=== PATIENT | female | born 1990 | race Two or more races ===

== ENCOUNTER 2025-01-09 10:58 | Emergency (ER) | payer MEDICAID, SELFPAY ==
[2025-01-09 10:59] VITALS: BMI 35.9
[2025-01-09 11:23] VITALS: BP 143/94; PULSE 78; RESP 16; TEMP 36.9; O2SAT 97
--- NOTE | 2025-01-09 11:32 | PD.EDEYE ---
ED Eye Problem RME/HPI General Chief complaint: Eye Problems Stated complaint: RIGHT EYE RED x 5 DAYS Time Seen by Provider: 01/09/25 11:20 Arrival date/time: 01/09/25 10:58 34-year-old female with medical history significant for diabetes presents the emergency department today with complaints of right eye discharge for right eye pain and right eye lid swelling patient reports that she saw automotive general manager and they put her on erythromycin 3 days ago but has not helped Limitations: no limitations Related Data Previous Rx's ?Medication ?Instructions ?Recorded albuterol sulfate 90 mcg/actuation 2 puff inhalation Q6H PRN 09/23/23 aerosol inhaler (Ventolin HFA) shortness of breath or wheezing #8.5 grams benzonatate 100 mg capsule 100 mg PO TID #14 caps 09/23/23 cephalexin 500 mg capsule 500 mg PO BID 7 days #14 caps 01/09/25 diphenhydramine HCl 25 mg capsule 25 mg PO Q8H PRN allergic symptoms 01/09/25 (Benadryl) #30 caps tobramycin 0.3 % eye drops 2 drp ophthalmic (eye) Q4H 5 days 01/09/25 #5 mL Allergies Allergy/AdvReac Type Severity Reaction Status Date / Time No Known Allergies Allergy Verified 01/09/25 10:58 Review of Systems Review of Systems Systems Reviewed: All systems reviewed, normal except as documented Constitutional Constitutional: Reports system reviewed and no additional complaints, except as documented, Denies fever(s) and Denies headache(s) Eyes Eyes: Reports system reviewed and no additional complaints, except as documented, Denies blurry vision, Reports irritation, Reports itchy eyes and Reports eye pain ENT Ears, Nose, Mouth, and Throat: Reports system reviewed and no additional complaints, except as documented, Denies headache(s), Denies nasal congestion and Denies nasal discharge Cardiovascular Cardiovascular: Reports system reviewed and no additional complaints, except as documented, Denies chest pain and Denies dyspnea Respiratory Respiratory: Reports system reviewed and no additional complaints, except as documented, Denies chest congestion, Denies cough and Denies dyspnea Gastrointestinal Gastrointestinal: Reports system reviewed and no additional complaints, except as documented and Denies abdominal pain Musculoskeletal Musculoskeletal: Reports system reviewed and no additional complaints, except as documented Integumentary/Breasts Skin/Breast: Reports system reviewed and no additional complaints, except as documented and Denies rash Neurologic Neurologic: Reports system reviewed and no additional complaints, except as documented, Reports as per HPI and Denies headache(s) Allergic/Immunologic Allergic/Immunologic: Reports itchy eyes Past Medical History Social History SMOKING STATUS: Never smoker ED Exam General Limitations: Present no limitations General appearance: Present alert and in no apparent distress Head Head exam: Present atraumatic, normocephalic and normal inspection Eye Eye exam: Present PERRL, EOMI and conjunctival injection (Right eye discharge); Absent periorbital swelling or periorbital tenderness ENT ENT exam: Present normal exam, normal oropharynx and mucous membranes moist Neck Neck exam: Present normal inspection, full ROM and trachea midline Chest Chest inspection: Present normal inspection and symmetric chest wall rise Respiratory Respiratory exam: Present normal lung sounds bilaterally; Absent respiratory distress, wheezes or stridor Cardiovascular Cardiovascular exam: Present regular rate, normal rhythm and normal heart sounds Abdominal Exam Abdominal exam: Present soft and normal bowel sounds Extremities Exam Extremities exam: Present normal inspection and full ROM Back Exam Back exam: Present normal inspection and full ROM Neurological Exam Neurological exam: Present alert, oriented X3 and CN II-XII intact Psychiatric Psychiatric exam: Present normal affect and normal mood Skin Skin exam: Present warm, dry, intact and normal color Course Quality Measures none Vital Signs Vital signs: Vital Signs Temperature 98.4 F 01/09/25 11:23 Pulse Rate 78 01/09/25 11:23 Respiratory Rate 16 01/09/25 11:23 Blood Pressure 143/94 H 01/09/25 11:23 Pulse Oximetry (%) 97 01/09/25 11:23 Oxygen Delivery Method Room Air 01/09/25 11:23 O2 saturation 97% room air within normal limits Eye MDM Narrative MDM Narrative:: 34-year-old female with medical history significant for diabetes presents the emergency department today with complaints of right eye discharge for right eye pain and right eye lid swelling patient reports that she saw automotive general manager and they put her on erythromycin 3 days ago but has not helped On exam patient well-appearing patient does not appear ill or toxic in no acute distress on exam patient does have right eye discharge mild conjunctival injection and right upper eyelid swelling On exam patient has no hyphema pupils are normal pupils are reactive equal in size Patient reports no headache dizziness weakness Patient reassured with course of antibiotics Explained to the patient she should follow-up with eye doctor soon as possible and if she develops any disturbances in vision to return immediately for further evaluation Patient data External records reviewed:: [facility] previous records Clinical information provided by:: patient Social determinants that could affect healthcare access:: none Patient has the following chronic illnesses:: See history How is presenting disease/condition affected by chronic disease/condition?: uneffected by Evaluation data The following diagnostics were reviewed and interpreted by me:: other (specify) Lab and/or radiology exams considered but not ordered:: Considered not ordered Interpretation Summary: N/A Medications / Prescriptions Medications or Prescriptions considered but not ordered:: Given Medication administrations:: Given Consultations Consultation(s) initiated? (list below): No Diagnosis Eye Problem Differential Diagnosis: corneal abrasion, conjunctivitis, corneal ulcer and ruptured globe Most likely diagnosis given after review of the tests above:: Conjunctivitis Admission Indicated Admission indicated?: not indicated Admission Request Was there a request for admission?: No Disposition Plan Disposition Plan: Discharge Discharge Attestation Discharge Attestation: The patient and all family members were given an opportunity to ask questions and understood the discharge instructions. Discharge instructions specifically effects, indications for sooner follow up or return to the emergency department, and the expected course of current diagnosis. Patient condition: Stable Discharge Plan Plan Patient Disposition: HOME (Self Care) Disposition Comment: Stable Prescriptions/Referrals Prescriptions/Med Rec: New cephalexin 500 mg capsule 500 mg PO BID 7 Days Qty: 14 0RF diphenhydramine HCl [Benadryl] 25 mg capsule 25 mg PO Q8H PRN (Reason: allergic symptoms) Qty: 30 0RF tobramycin 0.3 % drops 2 drp ophthalmic (eye) Q4H 5 Days Qty: 5 0RF No Action benzonatate 100 mg capsule 100 mg PO TID Qty: 14 0RF albuterol sulfate [Ventolin HFA] 90 mcg/actuation HFA aerosol inhaler 2 puff inhalation Q6H PRN (Reason: shortness of breath or wheezing) Qty: 8.5 0RF Problem List Clinical Impression: Conjunctivitis Patient/Caregiver Discharge Instructions Education Materials: What Is Conjunctivitis? Additional Instructions: Please follow up with your primary care doctor in the next 24-48hrs for any worsening symptoms return here immediately Print Language: Divehi Stand Alone Forms: [employer]anne Award Info., Work/School Release, Patient Portal Info Letter PA/DRIVING TEACHER Supervising Physician PA/DRIVING TEACHER Supervising Physician: Dr Renee
== END 2025-01-09 11:52 | disposition home or self-care (01) ==
PROVIDERS: Emergency Provider Emergency Medicine; PCP Family Medicine
DX: H10.9 Unspecified conjunctivitis (principal)
CPT/HCPCS: 99281

== ENCOUNTER 2025-01-11 17:49 | Emergency (ER) | payer MEDICAID, SELFPAY ==
[2025-01-11 18:54] VITALS: BP 116/81; PULSE 100; RESP 18; TEMP 37.6; O2SAT 96
--- NOTE | 2025-01-11 19:11 | EDNOTE_ITS ---
ED General RME/HPI General Chief complaint: Fever Stated complaint: FEVER, SORE THROAT, CONGESTION, NAUSEA SINCE SAT. Time Seen by Provider: 01/11/25 18:11 Arrival date/time: 01/11/25 17:49 34-year-old female presents with a 3-day history of cough, sore throat, runny nose and nasal congestion and mild ear pain. She has had a fever of 103 degrees she has been taking Tylenol for her fever. Positive ill contacts at home with similar symptoms. Related Data Previous Rx's ?Medication ?Instructions ?Recorded albuterol sulfate 90 mcg/actuation 2 puff inhalation Q 6H PRN 09/23/23 aerosol inhaler (Ventolin HFA) shortness of breath or wheezing #8.5 grams benzonatate 100 mg capsule 100 mg PO TID #14 caps 10/16 diphenhydramine HCl 25 mg capsule 25 mg PO Q8H PRN all ergic symptoms 01/09/25 (Benadryl) #30 caps albuterol sulfate 90 mcg/actuation 2 inh inhalation Q4 H PRN shortness 01/11/25 aerosol inhaler of breath or wheezing #8.5 g anni amoxicillin 875 mg-potassium 1 tab PO BID #20 tabs clavulanate 125 mg tablet benzonatate 100 mg capsule 100 mg PO Q4H PRN cough #20 caps 01/11/25 Allergies Allergy/AdvReac Type Severity Reaction Status Date / Time No Known Allergies Allergy Verified 01/11/25 17:54 Review of Systems Review of Systems Systems Reviewed: All systems reviewed, normal except as documented Past Medical History Social History SMOKING STATUS: Never smoker ED Exam Narrative Physical exam: Alert and oriented 34-year-old female, no acute distress. Temperature 99.6, BP 116/81, pulse 100, respirations 18 and nonlabore, O2 sat 96% on room air. Cardiovascular regular rate and rhythm, respiratory scattered wheezing noted with occasional crackles. TMs are without erythema, nares are pale and boggy, pharynx is with erythema and no exudate. Tender anterior cervical chain adenopathy. Course Course Course Narrative: 34-year-old female presents with a 3-day history of cough, sore throat, runny nose and nasal congestion and mild ear pain. She has had a fever of 103 degrees she has been taking Tylenol for her fever. Positive ill contacts at home with similar symptoms. Alert and oriented 34-year-old female, no acute distress. Temperature 99.6, BP 116/81, pulse 100, respirations 18 and nonlabore, O2 sat 96% on room air. Cardiovascular regular rate and rhythm, respiratory scattered wheezing noted with occasional crackles. TMs are without erythema, nares are pale and boggy, pharynx is with erythema and no exudate. Tender anterior cervical chain adenopathy. Quality Measures none Vital Signs Vital signs: Vital Signs Temperature 99.6 F 01/11/25 18:54 Pulse Rate 100 01/11/25 18:54 Respiratory Rate 18 01/11/25 18:54 Blood Pressure 116/81 01/11/25 18:54 Pulse Oximetry (%) 96 01/11/25 18:54 Oxygen Delivery Method Room Air 01/11/25 18:54 Discharge Plan Plan Patient Disposition: HOME (Self Care) Discharge Disposition comment: Stable Prescriptions/Referrals Prescriptions/Med Rec: New albuterol sulfate 90 mcg/actuation HFA aerosol inhaler 2 inh inhalation Q4H PRN (Reason: shortness of breath or wheezing) Qty: 8.5 0RF benzonatate 100 mg capsule 100 mg PO Q4H PRN (Reason: cough) Qty: 20 0RF amoxicillin-pot clavulanate 875-125 mg tablet 1 tab PO BID Qty: 20 0RF Continued benzonatate 100 mg capsule 100 mg PO TID Qty: 14 0RF albuterol sulfate [Ventolin HFA] 90 mcg/actuation HFA aerosol inhaler 2 puff inhalation Q6H PRN (Reason: shortness of breath or wheezing) Qty: 8.5 0RF No Action diphenhydramine HCl [Benadryl] 25 mg capsule 25 mg PO Q8H PRN (Reason: allergic symptoms) Qty: 30 0RF Problem List Clinical Impression: Acute tonsillitis, unspecified, Bronchitis Patient/Caregiver Discharge Instructions Other Activity Instructions:: Take the antibiotics as prescribed and complete the course even though you may be feeling better. Education Materials: Tonsillitis in Adults, ED Bronchitis with Wheezing (Adult) Additional Instructions: Stop taking the previously prescribed Keflex. The new antibiotic given is much stronger and will cover the treatment for your eye. Follow-up with your primary care physician in 24 to 48 hours. Return to the ED for any new or worsening symptoms. Print Language: Greek Stand Alone Forms: [employer] Award Info., Work/School Release, Patient Portal Info Letter EDVIN/CABRERA Supervising Physician EDVIN/CABRERA Supervising Physician: Dr. Sheldon RIZO Patient Acuity Low Acuity (complete MDM as needed) Narrative: 34-year-old female presents with a 3-day history of cough, sore throat, runny nose and nasal congestion and mild ear pain. She has had a fever of 103 degrees she has been taking Tylenol for her fever. Positive ill contacts at home with similar symptoms. Alert and oriented 34-year-old female, no acute distress. Temperature 99.6, BP 116/81, pulse 100, respirations 18 and nonlabore, O2 sat 96% on room air. Cardiovascular regular rate and rhythm, respiratory scattered wheezing noted with occasional crackles. TMs are without erythema, nares are pale and boggy, pharynx is with erythema and no exudate. Tender anterior cervical chain adenopathy. Clinical Information Provided by: patient Medical Records reviewed None Meds/Rx considered, not ordered None Labs/Rad/Tests considered, not ordered None Chronic Illness/Social Conditions which may negatively complicate care or outcome(s)-explain: None or not applicable EKG EKG not done Labs Labs: none Imaging Imaging interpretation: none or see narrative above Medication Administration(s) none Diagnosis Differential Diagnosis ED Complaint MDM: Bronchitis, pneumonia, COVID, influenza, strep pharyngitis
== END 2025-01-11 22:46 | disposition home or self-care (01) ==
LOC: SERX 19:55
PROVIDERS: Emergency Provider Family Medicine
DX: J40 Bronchitis, not specified as acute or chronic (principal); J03.90 Acute tonsillitis, unspecified
CPT/HCPCS: 99281

== ENCOUNTER 2025-05-11 20:15 | Emergency (ER) | payer SELFPAY ==
[2025-05-11 20:16] VITALS: BMI 31.1
[2025-05-11 21:05] VITALS: BP 136/88; PULSE 65; RESP 18; TEMP 37.1; O2SAT 99
--- NOTE | 2025-05-11 21:16 | PD.EDURI ---
Upper Respiratory Inf. RME/HPI General Chief Complaint: Flu Like Symptoms Stated Complaint: COVID POS, FEVER/BODYACHES Time Seen by Provider: 05/11/25 21:13 Arrival date/time: 05/11/25 20:15 34F with history of DM presents to ED with 2 days of cough, sore throat, body aches and fevers/chills. Patient tested positive for COVID at home. Limitations: no limitations Related Data Previous Rx's ?Medication ?Instructions ?Recorded albuterol sulfate 90 mcg/actuation 2 puff inhalation Q6H PRN 09/23/23 aerosol inhaler (Ventolin HFA) shortness of breath or wheezing #8.5 grams benzonatate 100 mg capsule 100 mg PO TID #14 caps 09/23/23 diphenhydramine HCl 25 mg capsule 25 mg PO Q8H PRN allergic symptoms 01/09/25 (Benadryl) #30 caps albuterol sulfate 90 mcg/actuation 2 inh inhalation Q4H PRN shortness 01/11/25 aerosol inhaler of breath or wheezing #8.5 grams amoxicillin 875 mg-potassium 1 tab PO BID #20 tabs 01/11/25 clavulanate 125 mg tablet benzonatate 100 mg capsule 100 mg PO Q4H PRN cough #20 caps 01/11/25 nirmatrelvir 300 mg (150 mg See Rx Instructions PO .COMPLEX 05/11/25 x2)-ritonavir 100 mg tablet,dose #30 tabs pack (Paxlovid) Allergies Allergy/AdvReac Type Severity Reaction Status Date / Time No Known Allergies Allergy Verified 05/11/25 20:18 Review of Systems Review of Systems Systems Reviewed: All systems reviewed, normal except as documented Constitutional Constitutional: Reports system reviewed and no additional complaints, except as documented, Reports as per HPI, Reports body ache(s), Reports chills, Reports fever(s) and Denies headache(s) ENT Ears, Nose, Mouth, and Throat: Reports as per HPI, Denies disequilibrium, Denies headache(s) and Reports sore throat Cardiovascular Cardiovascular: Reports system reviewed and no additional complaints, except as documented, Denies chest pain and Denies dyspnea Respiratory Respiratory: Reports system reviewed and no additional complaints, except as documented, Reports as per HPI, Reports cough and Denies dyspnea Gastrointestinal Gastrointestinal: Reports system reviewed and no additional complaints, except as documented, Denies abdominal pain, Denies nausea and Denies vomiting Neurologic Neurologic: Reports system reviewed and no additional complaints, except as documented, Denies confusion, Denies disequilibrium and Denies headache(s) Psychiatric Psychiatric: Denies confusion Past Medical History Social History SMOKING STATUS: Never smoker ED Exam General Limitations: Present no limitations General appearance: Present alert and in no apparent distress Head Head exam: Present atraumatic Eye Eye exam: Present normal appearance, PERRL and EOMI ENT ENT exam: Present normal exam, normal oropharynx and mucous membranes moist Neck Neck exam: Present normal inspection, full ROM and trachea midline Chest Chest inspection: Present normal inspection and symmetric chest wall rise Respiratory Respiratory exam: Present normal lung sounds bilaterally Cardiovascular Cardiovascular exam: Present regular rate, normal rhythm and normal heart sounds Abdominal Exam Abdominal exam: Present soft and normal bowel sounds Extremities Exam Extremities exam: Present normal inspection and full ROM Back Exam Back exam: Present normal inspection and full ROM Neurological Exam Neurological exam: Present alert, oriented X3 and CN II-XII intact Psychiatric Psychiatric exam: Present normal affect and normal mood Skin Skin exam: Present warm, dry, intact and normal color Course Quality Measures none Vital Signs Vital signs: Vital Signs Temperature 98.8 F 05/11/25 21:05 Pulse Rate 65 05/11/25 21:05 Respiratory Rate 18 05/11/25 21:05 Blood Pressure 136/88 H 05/11/25 21:05 Pulse Oximetry (%) 99 05/11/25 21:05 Oxygen Delivery Method Room Air 05/11/25 21:05 O2 at 99% on RA and WNLs Upper Respiratory Infection MDM Narrative MDM Narrative:: 34F with history of DM presents to ED with 2 days of cough, sore throat, body aches and fevers/chills. Patient tested positive for COVID at home. Physical exam reveals clear oropharynx and lungs. Normal WOB. Patient is afebrile, calm, and alert. Will give Paxlovid given DM. Patient data External records reviewed:: [facility] previous records Clinical information provided by:: patient Social determinants that could affect healthcare access:: none Patient has the following chronic illnesses:: DM How is presenting disease/condition affected by chronic disease/condition?: exacerbated by Evaluation data The following diagnostics were reviewed and interpreted by me:: other (specify) (none) Lab and/or radiology exams considered but not ordered:: not ordered Interpretation Summary: n/a Medications / Prescriptions Medications or Prescriptions considered but not ordered:: not ordered Medication administrations:: n/a Consultations Consultation(s) initiated? (list below): No Diagnosis Upper Respiratory Differential Diagnosis: upper respiratory infection, croup, otitis media, sinusitis, viral infection, bronchitis, influenza, pharyngitis and other (COVID) Most likely diagnosis given after review of the tests above:: COVID Admission Indicated Admission indicated?: not indicated Admission Request Was there a request for admission?: No Disposition Plan Disposition Plan: Discharge Discharge Attestation Discharge Attestation: The patient and all family members were given an opportunity to ask questions and understood the discharge instructions. Discharge instructions specifically effects, indications for sooner follow up or return to the emergency department, and the expected course of current diagnosis. Patient condition: Stable Discharge Plan Plan Patient Disposition: HOME (Self Care) Discharge Disposition comment: Stable Prescriptions/Referrals Prescriptions/Med Rec: New Paxlovid 300 mg (150 mg x 2)-100 mg tablets,dose pack See Rx Instructions .ROUTE .COMPLEX Qty: 30 0RF Rx Instructions: take TWO 150 mg tablets of nirmatrelvir with ONE 100 mg tablet of ritonavir twice daily for 5 days No Action diphenhydramine HCl [Benadryl] 25 mg capsule 25 mg PO Q8H PRN (Reason: allergic symptoms) Qty: 30 0RF benzonatate 100 mg capsule 100 mg PO TID Qty: 14 0RF albuterol sulfate [Ventolin HFA] 90 mcg/actuation HFA aerosol inhaler 2 puff inhalation Q6H PRN (Reason: shortness of breath or wheezing) Qty: 8.5 0RF albuterol sulfate 90 mcg/actuation HFA aerosol inhaler 2 inh inhalation Q4H PRN (Reason: shortness of breath or wheezing) Qty: 8.5 0RF benzonatate 100 mg capsule 100 mg PO Q4H PRN (Reason: cough) Qty: 20 0RF amoxicillin-pot clavulanate 875-125 mg tablet 1 tab PO BID Qty: 20 0RF Problem List Clinical Impression: COVID-19 Patient/Caregiver Discharge Instructions Education Materials: COVID-19 Home Care Additional Instructions: Please follow-up with PCP within 24-48 hours and return immediately if symptoms worsen. Ibuprofen/Tylenol can be used simultaneously for greater fever/pain control. Benadryl is good for cough, congestion, and sleep. Print Language: Zambian Stand Alone Forms: Work/School Release, Patient Portal Info Letter PA/SANDWICH MACHINE OPERATOR Supervising Physician PA/SANDWICH MACHINE OPERATOR Supervising Physician: Dr. Cannon
== END 2025-05-11 21:26 | disposition home or self-care (01) ==
LOC: SERX 21:20
PROVIDERS: Emergency Provider Emergency Medicine; PCP Family Medicine
DX: U07.1 COVID-19 (principal); E11.9 Type 2 diabetes mellitus without complications
CPT/HCPCS: 99282

== ENCOUNTER 2025-07-09 18:04 | Emergency (ER) | payer BC, SELFPAY ==
[2025-07-09 18:56] VITALS: BP 130/89; PULSE 71; RESP 18; TEMP 36.9; O2SAT 98; BMI 31.7
--- NOTE | 2025-07-09 19:07 | XR_ITS ---
Examination: Abdomen sonogram, Limited Date and time of exam: July 09, 2025, 2021 hours INDICATIONS: Epigastric pain and vomiting beginning 2 days ago Technique: Real-time paul scale transabdominal sonographic images of the upper abdomen obtained. Findings: Cholelithiasis, normal gallbladder wall Normal common bile duct 0.2 cm Pancreas obscured by bowel gas Liver 13.7 cm fatty infiltration no focal liver lesions Normal hepatopetal portal venous 7 Patent IVC IMPRESSION: Cholelithiasis, negative for cholecystitis
--- NOTE | 2025-07-09 19:09 | PD.EDABDPN ---
ED Abdominal Pain RME/HPI General Chief Complaint: Nausea/Vomiting/Diarrhea Stated complaint: Vomiting, abd. pain X 2 days Time seen by provider: 07/09/25 18:25 Arrival date/time: 07/09/25 18:04 35F with history of DM (on Mounjaro; dose change about 1 month ago) presents to ED with 2 days of epigastric pain and N/V. Limitations: no limitations Related Data Previous Rx's ?Medication ?Instructions ?Recorded albuterol sulfate 90 mcg/actuation 2 puff inhalation Q6H PRN 09/23/23 aerosol inhaler (Ventolin HFA) shortness of breath or wheezing #8.5 grams benzonatate 100 mg capsule 100 mg PO TID #14 caps 09/23/23 diphenhydramine HCl 25 mg capsule 25 mg PO Q8H PRN allergic symptoms 01/09/25 (Benadryl) #30 caps albuterol sulfate 90 mcg/actuation 2 inh inhalation Q4H PRN shortness 01/11/25 aerosol inhaler of breath or wheezing #8.5 grams amoxicillin 875 mg-potassium 1 tab PO BID #20 tabs 01/11/25 clavulanate 125 mg tablet benzonatate 100 mg capsule 100 mg PO Q4H PRN cough #20 caps 01/11/25 nirmatrelvir 300 mg (150 mg See Rx Instructions PO .COMPLEX 05/11/25 x2)-ritonavir 100 mg tablet,dose #30 tabs pack (Paxlovid) Allergies Allergy/AdvReac Type Severity Reaction Status Date / Time No Known Allergies Allergy Verified 07/09/25 18:09 Review of Systems Review of Systems Systems Reviewed: All systems reviewed, normal except as documented Gastrointestinal Gastrointestinal: Reports as per HPI, Reports abdominal pain, Reports nausea and Reports vomiting Past Medical History Social History SMOKING STATUS: Never smoker ED Exam General Limitations: Present no limitations General appearance: Present alert and in no apparent distress Head Head exam: Present atraumatic Neck Neck exam: Present normal inspection, full ROM and trachea midline Chest Chest inspection: Present normal inspection and symmetric chest wall rise Abdominal Exam Abdominal exam: Present soft Abdominal tenderness: Present RUQ, epigastrium and mild Neurological Exam Neurological exam: Present alert and oriented X3 Psychiatric Psychiatric exam: Present normal affect and normal mood Skin Skin exam: Present warm, dry, intact and normal color Course Quality Measures none Orders Category Date Time Status US gall bladder Stat Exams 07/09/25 19:07 Completed CBC Stat Lab 07/09/25 19:11 Completed CMP [Comprehensive Metabolic Panel] Stat Lab 07/09/25 19:11 Completed Drug Screen,Urine Stat Lab 07/09/25 19:40 Completed HCG Qualitative,Urine Stat Lab 07/09/25 19:40 Completed Lipase Stat Lab 07/09/25 19:11 Completed Famotidine [Pepcid] Med 07/09/25 19:07 Discontinued 40 mg PO X1 ONE Metoclopramide [Reglan] Med 07/09/25 19:07 Discontinued 10 mg PO X1 ONE Vital Signs Vital signs: Vital Signs Temperature 98.4 F 07/09/25 18:56 Pulse Rate 71 07/09/25 18:56 Respiratory Rate 18 07/09/25 18:56 Blood Pressure 130/89 H 07/09/25 18:56 Pulse Oximetry (%) 98 07/09/25 18:56 Oxygen Delivery Method Room Air 07/09/25 18:56 O2 at 98% on RA and WNLs Abdominal Pain MDM MDM Narrative MDM Narrative:: 35F with history of DM (on Mounjaro; dose change about 1 month ago) presents to ED with 2 days of epigastric pain and N/V. Physical exam reveals mild RUQ/epigastric tenderness (epi>RUQ). Patient is afebrile, calm, and alert. US gallbladder gallstones, but signs of inflammation. Mild LFT elevation and bili, but normal CBD diameter on US. Lipase normal. No leukocytosis. Meds improved symptoms. Counseled can return in AM for MRCP if symptoms persist or get worse. Patient data External records reviewed:: [facility] previous records Clinical information provided by:: patient Social determinants that could affect healthcare access:: none Patient has the following chronic illnesses:: DM How is presenting disease/condition affected by chronic disease/condition?: exacerbated by Evaluation data The following diagnostics were reviewed and interpreted by me:: lab results and radiology exam(s) Lab and/or radiology exams considered but not ordered:: ordered Interpretation Summary: above Medications / Prescriptions Medications or Prescriptions considered but not ordered:: ordered Medication administrations:: Medication Administration History Discontinued Medications Famotidine (Famotidine 20 Mg Tablet) 40 mg PO X1 ONE Stop: 07/09/25 19:08 Last Admin: 07/09/25 19:22 Dose: 40 mg Documented By: RABIA Metoclopramide HCl (Metoclopramide 5 Mg Tablet) 10 mg PO X1 ONE Stop: 07/09/25 19:08 Last Admin: 07/09/25 19:22 Dose: 10 mg Documented By: RABIA above Consultations Consultation(s) initiated? (list below): No Diagnosis Differential diagnosis abdominal pain: abdominal pain, acute appendicitis, calculus of kidney, constipation, diverticulitis, endometriosis, gastroenteritis, pancreatitis, small bowel obstruction and other (gastritis, drug adverse effect, bili elevation, ) Most likely diagnosis given after review of the tests above:: bili elevation and gallstones Admission Indicated Admission indicated?: not indicated Admission Request Was there a request for admission?: No Disposition Plan Disposition Plan: Discharge Discharge Attestation Discharge Attestation: The patient and all family members were given an opportunity to ask questions and understood the discharge instructions. Discharge instructions specifically effects, indications for sooner follow up or return to the emergency department, and the expected course of current diagnosis. Patient condition: Stable Discharge Plan Plan Patient Disposition: HOME (Self Care) Discharge Disposition comment: Stable Prescriptions/Referrals Prescriptions/Med Rec: No Action diphenhydramine HCl [Benadryl] 25 mg capsule 25 mg PO Q8H PRN (Reason: allergic symptoms) Qty: 30 0RF Paxlovid 300 mg (150 mg x 2)-100 mg tablets,dose pack See Rx Instructions .ROUTE .COMPLEX Qty: 30 0RF Rx Instructions: take TWO 150 mg tablets of nirmatrelvir with ONE 100 mg tablet of ritonavir twice daily for 5 days benzonatate 100 mg capsule 100 mg PO TID Qty: 14 0RF albuterol sulfate [Ventolin HFA] 90 mcg/actuation HFA aerosol inhaler 2 puff inhalation Q6H PRN (Reason: shortness of breath or wheezing) Qty: 8.5 0RF albuterol sulfate 90 mcg/actuation HFA aerosol inhaler 2 inh inhalation Q4H PRN (Reason: shortness of breath or wheezing) Qty: 8.5 0RF benzonatate 100 mg capsule 100 mg PO Q4H PRN (Reason: cough) Qty: 20 0RF amoxicillin-pot clavulanate 875-125 mg tablet 1 tab PO BID Qty: 20 0RF Referrals: Iraida Walsh PA-C [Primary Care Provider] - In 1 week Problem List Clinical Impression: Gallstones, Elevated bilirubin Patient/Caregiver Discharge Instructions Education Materials: Total Bilirubin (Blood), ED Gallstones with Biliary Colic Additional Instructions: Please follow-up with PCP within 24-48 hours and return immediately if symptoms worsen. If symptoms persist, can return in AM for MRCP. Watch for fevers/chills, worsening pain and/or jaundice. Otherwise, see PCP for referral to general surgeon for elective outpatient gallbladder removal. Print Language: Sudanese Stand Alone Forms: Leanne Award Info., Patient Portal Info Letter PA/SELECT BANKER Supervising Physician PA/CABRERA Supervising Physician: Dr. Cannon
[2025-07-09] MEDS: FAMOTIDINE 20 MG TABLET 40 MG PO (19:22)
[2025-07-09] MEDS: METOCLOPRAMIDE 5 MG TABLET 10 MG PO (19:22)
[2025-07-09 19:27] LABS: Basophils # (Auto) 0.0 Thou/mm3 (0.0-0.2); Basophils % (Auto) 0 % (0-2.5); Eosinophils # (Auto) 0.1 Thou/mm3 (0.0-0.5); Eosinophils % (Auto) 1 % (0-10); Hematocrit 40.5 % (36.0-46.0); Hemoglobin 13.2 g/dL (12.0-16.0); Immature Granulocytes Auto 0.02 Thou/mm3 (0.00-0.00); Lymphocytes # (Auto) 1.5 Thou/mm3 (1.0-4.8); Lymphocytes % (Auto) 18 % (10-50); Mean Corpuscular HGB Conc 32.6 g/dl (31.0-37.0); Mean Corpuscular Hemoglobin 26.6 pg (25.0-35.0); Mean Corpuscular Volume 82 fL (80-100); Monocytes # (Auto) 0.7 Thou/mm3 (0.0-0.8); Monocytes % (Auto) 8 % (0-12); Neutrophils # (Auto) 5.8 Thou/mm3 (1.8-7.7); Neutrophils % (Auto) 72 % (37-80); Nucleated Red Blood Cell # 0.00 Thou/mm3 (0.00-0.00); Nucleated Red Blood Cell % 0 /100 WBC (0); Platelet Count 273 Thou/mm3 (140-440); RDW Standard Deviation 38.8 fL (36.4-46.3); Red Blood Count 4.97 Miln/mm3 (4.00-5.20); White Blood Count 8.0 Thou/mm3 (3.6-11.0)
[2025-07-09 19:47] LABS: Alanine Aminotransferase 193 U/L (10-49); Albumin, Serum 4.9 gm/dL (3.5-5.0); Albumin/Globulin Ratio 1.8 (1.2-2.2); Alkaline Phosphatase 105 U/L (46-116); Anion Gap 10 (7-16); Aspartate Amino Transferase 257 U/L (0-34); BUN/Creatinine Ratio 9 Ratio (12-20); Bilirubin,Total 1.4 mg/dL (0.3-1.2); Blood Urea Nitrogen 8 mg/dL (9-23); Calcium 9.4 mg/dL (8.3-10.6); Calcium (Corrected) 9.4 mg/dL (8.5-10.1); Carbon Dioxide 26.4 mMol/L (20.0-31.0); Chloride 104 mMol/L (98-107); Creatinine (Component) 0.9 mg/dL (0.6-1.3); Estimated Creatinine Clearance 81.5 mL/min (>60); Globulin 2.8 gm/dL (2.3-3.5); Glucose 88 mg/dL (74-106); Lipase 40 U/L (12-53); Osmolality,Calculated 276 (275-295); Potassium 3.7 mMol/L (3.4-5.1); Sodium 140 mMol/L (136-145); Total Protein 7.7 gm/dL (5.7-8.2); eGFR > 60 See Note
[2025-07-09 19:54] LABS: HCG Qualitative,Urine Negative
[2025-07-09 20:55] LABS: Amphetamine/Methamp Scrn,U Negative (Negative); Barbiturate Screen,Urine Negative (Negative); Benzodiazepines Screen,Urine Negative (Negative); Benzoylecgonine Screen, Ur Negative (Negative); Fentanyl Screen,Urine Negative (Negative); Opiate Screen,Urine Negative (Negative); THC Screen,Urine Negative (Negative)
[2025-07-09 22:00] VITALS: BP 120/82; PULSE 60; RESP 16; TEMP 36.8; O2SAT 100
== END 2025-07-09 22:05 | disposition home or self-care (01) ==
PROVIDERS: Physician Assistant; Emergency Provider Emergency Medicine; PCP Physician Assistant Medical
DX: K80.70 Calculus of gallbladder and bile duct without cholecystitis without obstruction (principal); E11.9 Type 2 diabetes mellitus without complications
CPT/HCPCS: 36415; 76705; 80053; 80307; 81025; 83690; 85025; 99283; A9270